=== PATIENT | male | born 1980 | race Asian ===

== ENCOUNTER 2020-08-10 08:46 | Emergency (ER) | payer OTHER ==
[~2020-08-10] VITALS: Ht 175.3 cm; Wt 72.6 kg
[2020-08-10 08:48] VITALS: BP_SYST 130
[2020-08-10] MEDS ORDERED: DIPH-TET-PERTUS Vaccine 0.5 ML VIAL (ADACEL) I.M. ONE (09:00)
[2020-08-10] MEDS ORDERED: NAPR-690 PO (09:29)
[2020-08-10] MEDS ORDERED: NAPR-1172 PO (09:40)
[2020-08-10 09:50] VITALS: BP_SYST 130
== END 2020-08-10 09:45 | disposition home or self-care (01) ==
LOC: SED 08:46
DX: S61.310A Laceration without foreign body of right index finger with damage to nail, initial encounter (principal); W26.0XXA Contact with knife, initial encounter; Y93.89 Activity, other specified; Y92.89 Other specified places as the place of occurrence of the external cause; Y99.0 Civilian activity done for income or pay
CPT/HCPCS: 90715; 99283

== ENCOUNTER 2020-08-12 13:18 | Emergency (ER) | payer OTHER ==
[~2020-08-12] VITALS: Ht 175.3 cm; Wt 72.6 kg
[~2020-08-12 13:18] MED LIST: NAPR-1172 PO; NAPR-690 PO
[2020-08-12 13:25] VITALS: BP_SYST 119
[2020-08-12] MEDS ORDERED: BACITRACIN 1 GM OINT TP ONE (14:20)
[2020-08-12] MEDS ORDERED: BACITRACIN/POLYMYXIN B SULFATE 30 GM TOPICAL OINT. TP ONE (14:30)
[2020-08-12 14:35] VITALS: BP_SYST 121
== END 2020-08-12 14:35 | disposition home or self-care (01) ==
LOC: SED 13:18
DX: Z48.00 Encounter for change or removal of nonsurgical wound dressing (principal)
CPT/HCPCS: 99283